=== PATIENT | female | born 1935 | race Hispanic/Latino ===

== ENCOUNTER 2017-05-10 06:45 | Day surgery (SDC) | payer MEDICARE, BC ==
[2017-05-03 13:27] VITALS: BMI 22.8
[2017-05-10] MEDS ORDERED: Propofol 10 mg/ml Inj (20 ML) ONE (08:13)
[2017-05-10] MEDS ORDERED: Lidocaine 2% Inj (20ml) ONE (08:13)
[2017-05-10] MEDS ORDERED: Sodium Chloride 0.9% 1,000 ML IV SCH (08:15)
[2017-05-10] MEDS ORDERED: Etomidate 20 mg/10ml Inj IV ONE (08:18)
[2017-05-10 09:21] VITALS: PULSE 61
[2017-05-10 09:40] VITALS: BP 171/77; RESP 19; TEMP 98.4; O2SAT 97
== END 2017-05-10 10:02 | disposition home or self-care (01) ==
LOC: ENDO 06:45
PROVIDERS: ATTEND Specialist
DX: Z12.11 Encounter for screening for malignant neoplasm of colon (principal); D12.4 Benign neoplasm of descending colon; K57.30 Diverticulosis of large intestine without perforation or abscess without bleeding; K64.8 Other hemorrhoids; K64.4 Residual hemorrhoidal skin tags; E03.9 Hypothyroidism, unspecified; I10 Essential (primary) hypertension; Z85.3 Personal history of malignant neoplasm of breast
CPT/HCPCS: 45380; 88305; J2704; J7040 ×2

== ENCOUNTER 2018-09-25 08:28 | Outpatient (CLI) | payer MEDICARE | END 2018-09-25 08:29 | disposition home or self-care (01) | LOC: LAB 08:28 ==